=== PATIENT | female | born 1940 | race Caucasian/White ===

== ENCOUNTER 2016-09-19 09:49 | Day surgery (SDC) | payer MEDICARE, OTHER ==
--- NOTE | 2016-09-12 12:11 | HISTORY AND PHYSICAL E ---
History and Physical NAME: NIKOLE NAJERA : 1940 AGE: 76Y ADMITTED: 09/19/2016 ROOM: HISTORY OF THE PRESENT ILLNESS: Patient was seen in 2005. Colonoscopy done in 2005 showed rectal polyps. Histology was benign. Referred by Dr. Avila. I saw her initially when she was referred by Dr. Avila regarding colon screening. REVIEW OF SYSTEMS: CARDIAC: Negative. ENDOCRINE: Negative. GASTROINTESTINAL: Colon screening. FAMILY HISTORY: Father age 89. Patient's mom secondary to accident. PAST SURGICAL HISTORY: x3. Right breast mastectomy. Bilateral cataracts. Appendectomy. MEDICATIONS: Vitamins. Spiriva. PHYSICAL EXAMINATION: GENERAL: Pleasant, alert, oriented. VITAL SIGNS: Blood pressure is 150/80. Pulse 80. Respirations 18. Temp is 98. HEAD, EYES, EARS, NOSE AND THROAT: Normal. NECK: Supple. CARDIOVASCULAR: Normal. LUNGS: Clear. ABDOMEN: Soft. NEUROLOGIC: Negative. CONCLUSION: Colon screening. Her colonoscopy in 2005 showed difficult, redundant, diverticulosis. Patient is being done in the OR with anesthesia standby. PLAN: Colon exam. Colon for 09/19 to be done in the OR with anesthesia standby. DICTATING PHYSICIAN: KALIE BUNCH M.D. [id number] [id number] Y#: [id number] ID: [id number] JOB#: [id number] ACCT: [id number] cc:STEPHEN ABEL M.D., MAHMOUD M.D. >
[2016-09-17 12:13] LABS: HEMATOCRIT 42.3 % (36.0-47.0); HEMOGLOBIN 14.1 g/dL (12.0-15.5); MEAN CORPUSCULAR HGB CONC 33.3 g/dL (32.0-36.0); MEAN CORPUSCULAR VOLUME 90 fl (80-97); RED BLOOD COUNT 4.69 10^6/uL (3.72-5.28); RED CELL DISTRIBUTION WIDTH 13.2 % (11.5-14.0); WHITE BLOOD COUNT 7.7 10^3/uL (4.0-10.5)
[2016-09-17 12:34] LABS: ANION GAP 15 (5-19); BLOOD UREA NITROGEN 14 mg/dL (7-20); CARBON DIOXIDE 29 mmol/L (22-30); CHLORIDE 101 mmol/L (98-107); CREATININE RESULT 0.74 mg/dL (0.52-1.25); GLUCOSE 147 mg/dL (75-110); POTASSIUM 4.8 mmol/L (3.6-5.0); SODIUM 144.6 mmol/L (137-145)
--- NOTE | 2016-09-17 13:05 | EKG REPORT ---
SEVERITY:- ABNORMAL ECG - SINUS RHYTHM NONSPECIFIC T ABNORMALITIES, LATERAL LEADS : Confirmed by: Dat Epps MD 17-Sep-2016 13:05:01
[~2016-09-19 09:49] MED LIST: LACTATED RINGERS 1000 ML IV PRN; LIDOCAINE 0.5% INJ-PF (5 MG/ML) 50 ML SDV SUBCUT PRN; PROPOFOL INJ 200 MG/20 ML VIAL IV ONE
[2016-09-19] MEDS ORDERED: DIPHENHYDRAMINE HCL 50 MG/ML VIAL IV PRN (11:49)
[2016-09-19] MEDS ORDERED: ONDANSETRON HCL INJ/PF 4 MG/2 ML SDV IV PRN (11:49)
[2016-09-19] MEDS ORDERED: MEPERIDINE HCL/PF INJ 25 MG/1 ML DISP.SYRIN IV PRN (11:49)
[2016-09-19] MEDS ORDERED: FENTANYL CITRATE INJ/PF 100 MCG/2 ML AMPUL IV PRN ×3 (11:49)
[2016-09-19 13:24] LABS: ALANINE AMINOTRANSFERASE 54 U/L (9-52); ALBUMIN 4.3 g/dL (3.5-5.0); ALKALINE PHOSPHATASE 49 U/L (38-126); ANION GAP 10 (5-19); ASPARTATE AMINO TRANSFERASE 35 U/L (14-36); BILIRUBIN,DIRECT 0.1 mg/dL (0.0-0.4); BILIRUBIN,TOTAL 0.4 mg/dL (0.2-1.3); BLOOD UREA NITROGEN 11 mg/dL (7-20); CALCIUM 9.7 mg/dL (8.4-10.2); CARBON DIOXIDE 32 mmol/L (22-30); CHLORIDE 103 mmol/L (98-107); GLUCOSE 164 mg/dL (75-110); POTASSIUM 4.2 mmol/L (3.6-5.0); SODIUM 145.2 mmol/L (137-145)
--- NOTE | 2016-09-19 13:40 | DISCHARGE SUMMARY E ---
Discharge Summary NAME: NIKOLE NAJERA : 1940 AGE: 76Y ADMITTED: 09/19/2016 DISCHARGED: 09/19/2016 FINAL DIAGNOSES: 1. Colorectal polyps. 2. Small 4-mm polyp, rectum. 3. A 5-mm polyp at sigmoid. 4. A 4-mm polyp at transverse colon. 5. Sessile lipoma, proximal ascending colon. HISTORY: The patient is 76 and presented regarding colon screening. Her colonoscopy shows a redundant difficult colon. There were multiple benign-looking polyps in the ascending, transverse and descending sigmoid polyps, biopsy obtained. Because of the multiplicity of polyps, the patient needs to have follow-up colonoscopy in 6 months to be done in the OR with anesthesia standby. CONCLUSIONS: Difficult redundant colon with multiplicity of benign-looking polyps, awaiting histopathology. DISCHARGE INSTRUCTIONS: The patient was discharged on a full liquid diet, soft, low residue for today and awaiting biopsy results. Baseline CBC, CEA, and chem profile. We will see the patient in followup in the next few days. Consideration of follow-up colonoscopy after 6 months to be done in the OR. DICTATING PHYSICIAN: KALIE BUNCH M.D. [id number] [id number] PHY#: [id number] ID: [id number] JOB#: [id number] ACCT: [id number] cc:STEPHEN ABEL M.D., MAHMOUD M.D. >
--- NOTE | 2016-09-19 13:40 | OPERATIVE REPORT E ---
Operative Report NAME: NIKOLE NAJERA : 1940 AGE: 76Y DATE OF SURGERY: 09/19/2016 ROOM: PREOPERATIVE DIAGNOSIS: Colon screening. POSTOPERATIVE DIAGNOSES: 1. Rectal polyp, 2 mm. 2. Rectosigmoid polyp, 4 mm. 3. A 3-mm polyp at transverse colon. 4. A sessile lipoma in the cecum. PROCEDURE: Colonoscopy. SURGEON: KALIE BUNCH M.D. ANESTHESIA: Done in the OR with anesthesia standby. TISSUE REMOVED OR ALTERED: 1. Biopsy of polyp, rectum. 2. Biopsy of polyp, sigmoid. 3. Biopsy of polyp, transverse colon. DESCRIPTION OF PROCEDURE: The patient has a long, redundant colon. Rectal exam shows diminutive polyp, rectosigmoid polyp, and transverse colon polyp. Ascending colon shows lipoma at the cecum-ascending junction. Cecum normal. Large amount of stool and wide, large cecum with some redundancy. Scope withdrawn back from cecum, ascending, transverse, descending, sigmoid all the way to the rectum. CONCLUSIONS: 1. Multiple benign-looking colorectal polyps. 2. Lipoma, ascending colon. PLAN: Because of the multiplicity of the polyps and redundant colon, awaiting biopsy. Consideration for follow-up colonoscopy after 6 months. DICTATING PHYSICIAN: KALIE BUNCH M.D. [id number] [id number] PHY#: [id number] ID: [id number] JOB#: [id number] ACCT: [id number] cc:STEPHEN ABEL M.D., MAHMOUD M.D. >
[2016-09-19 13:55] LABS: CARCINOEMBRYONIC ANTIGEN 1.7 ng/mL (<3.0)
[2016-09-19 14:21] VITALS: BP 149/80
== END 2016-09-19 13:35 | disposition home or self-care (01) ==
LOC: OROUT 09:49
PROVIDERS: ATTEND Specialist
PROC: 0DBN8ZX Excision of Sigmoid Colon, Via Natural or Artificial Opening Endoscopic, Diagnostic (ICD-10-PCS; 2016-09-19)
PROC: 0DBP8ZX Excision of Rectum, Via Natural or Artificial Opening Endoscopic, Diagnostic (ICD-10-PCS; 2016-09-19)
PROC: 0DBL8ZX Excision of Transverse Colon, Via Natural or Artificial Opening Endoscopic, Diagnostic (ICD-10-PCS; principal; 2016-09-19 10:45)
DX: Z12.11 Encounter for screening for malignant neoplasm of colon (principal); D17.5 Benign lipomatous neoplasm of intra-abdominal organs; D12.7 Benign neoplasm of rectosigmoid junction; D12.3 Benign neoplasm of transverse colon; K63.5 Polyp of colon; R97.0 Elevated carcinoembryonic antigen [CEA]; Z79.51 Long term (current) use of inhaled steroids; Z79.899 Other long term (current) drug therapy
CPT/HCPCS: 45380; 93005; 36415 ×2; 82962; 82378; 85027; 80048; 80053; 88305 ×2; 93010; J2704; 810

== ENCOUNTER 2017-11-17 09:52 | Day surgery (SDC) | payer MEDICARE ==
[~2017-11-17 09:52] MED LIST changes: -LACTATED RINGERS 1000 ML IV PRN; -LIDOCAINE 0.5% INJ-PF (5 MG/ML) 50 ML SDV SUBCUT PRN
[2017-11-17 11:48] VITALS: BP 119/76
--- NOTE | 2017-11-17 13:53 | Operative Report ---
Operative Report DATE OF SURGERY: 11/17/17 Operative Report: The risks, benefits and alternatives of the procedure including risks of bleeding, perforation requiring surgery are explained to the patient in detail and informed consent is obtained. Patient was taken back to the endoscopy suite and placed in the left, lateral decubital position. Timeout was called. Propofol medication is administered. A rectal examination was done which did not reveal any masses, tenderness of fissures. An Olympus videoscope was inserted into the patient's rectum. The scope was then carefully advanced all the way to the cecum. The cecum was identified by the usual anatomical landmarks including the ileocecal valve as well as the appendiceal office. Photodocumentation is obtained. The scope was then sequentially pulled back via the various segments of the colon including the ascending colon, hepatic flexure, transverse colon, descending colon and finally into the rectosigmoid portions of the colon. Retroflexion maneuver is performed. Prep is good. PREOPERATIVE DIAGNOSIS: Personal history of colon polyp POSTOPERATIVE DIAGNOSIS: Right-sided colon biopsy status post biopsy. Colon polyp in the descending colon was removed via snare polypectomy. Possible submucosal lesion question lipoma at the area of the ascending colon. Internal hemorrhoids OPERATION: Colonoscopy with snare polypectomy. Colonoscopy with biopsy SURGEON: RIGOBERTO MOSQUERA ANESTHESIA: LMAC TISSUE REMOVED OR ALTERED: As noted above. COMPLICATIONS: None. ESTIMATED BLOOD LOSS: None. INTRAOPERATIVE FINDINGS: As noted above. PROCEDURE: Patient tolerated procedure well. No immediate postprocedure complications are noted. Patient discharged in good condition. Discharge date 11/17/2017. Discharge diet: Regular. Discharge activity: Regular. 2-3 week follow-up to discuss findings. Patient is instructed to call the office or proceed to the emergency room should there be any further problems or questions. We will wait on the pathology. 3-5 year surveillance colonoscopy.
== END 2017-11-17 12:00 | disposition home or self-care (01) ==
LOC: END 09:52
PROVIDERS: ATTEND Internal Medicine Gastroenterology
DX: D12.4 Benign neoplasm of descending colon (principal); K64.8 Other hemorrhoids; D17.5 Benign lipomatous neoplasm of intra-abdominal organs; K52.9 Noninfective gastroenteritis and colitis, unspecified; Z86.010 Personal history of colon polyps; E11.9 Type 2 diabetes mellitus without complications; E78.2 Mixed hyperlipidemia; Z79.82 Long term (current) use of aspirin; Z79.51 Long term (current) use of inhaled steroids; Z79.84 Long term (current) use of oral hypoglycemic drugs; Z79.1 Long term (current) use of non-steroidal anti-inflammatories (NSAID)
CPT/HCPCS: 45380; 45385; 811; 82962; 88305; J2704